=== PATIENT | male | born 1965 | race Caucasian/White ===

== ENCOUNTER 2019-10-03 13:53 | Observation (INO) | payer OTHER ==
[2019-10-03] MEDS ORDERED: HYDROmorphone 0.5 MG/0.5 ML SYRINGE IVP STA (14:22)
[2019-10-03] MEDS ORDERED: SODIUM CHLORIDE 0.9% 1,000 ML IV STA ×2 (14:22)
[2019-10-03] MEDS ORDERED: KETOROLAC 30 MG/ML 1 ML VIAL IVP STA (14:22)
[2019-10-03] MEDS ORDERED: ONDANSETRON 4 MG/2 ML VIAL IVP STA (14:22)
--- NOTE | 2019-10-03 14:37 | ED ---
Abdominal Pain HPI - General Chief Complaint: Abdominal Pain Stated Complaint: Gallbladder pain Time Seen by Provider: 10/03/19 14:10 Source: patient, RN notes reviewed, old records reviewed Mode of arrival: ambulatory Limitations: no limitations - History of Present Illness Initial Comments: This patient's a 34-year-old male. He presents today with complaint of right upper quadrant abdominal pain. Symptoms started after he ate [employer] earlier today. Patient reports that he has been having some diarrhea off and on for the past few days. Patient states that he has had a known history of galbladder problems but reports that Dr. Olivo did not want to remove his gallbladder at that time. Patient states that he's had no fever at this time, but did have a fever earlier this week. He states that he has had normal urination. - Related Data Home Medications Medication Instructions Recorded Confirmed Calcium Carbonate [Tums] 500 mg PO TID PRN 11/16/15 12/10/15 Gabapentin [Neurontin] 600 mg PO HS PRN 11/16/15 12/10/15 HYDROcodone/APAP 10-325MG [[place] 1 tab PO Q8H PRN 11/16/15 12/10/15 10-325] Hydrochlorothiazide [Hydrodiuril] 12.5 mg PO DAILY 11/16/15 12/10/15 Lisinopril [Zestril] 20 mg PO DAILY 11/16/15 12/10/15 Losartan [Cozaar] 50 mg PO DAILY 11/16/15 12/10/15 Mv-Min/Vit C/Glu/Delisa HCl/Hc124 1 tab PO BID 11/16/15 12/10/15 [Airborne Tablet Chewable] Omeprazole [PriLOSEC] 20 mg PO BID PRN 11/16/15 12/10/15 Previous Rx's Medication Instructions Recorded HYDROcodone/APAP 7.5-325MG [[place] 1 tab PO Q6HR PRN #28 tab 12/09/15 7.5-325] Allergies Allergy/AdvReac Type Severity Reaction Status Date / Time No Known Allergies Allergy Verified 10/03/19 14:05 Review of Systems ROS Statement: Those systems with pertinent positive or pertinent negative responses have been documented in the HPI. ROS Other: All systems not noted in ROS Statement are negative. Past Medical History Past Medical History: GERD/Reflux, Hyperlipidemia, Hypertension Additional Past Medical History / Comment(s): 12/09/15 Pt admitted to floor s/p lap viet fundoplasty. Other HX: OCC HYPOGLYCEMIC. Back pain. HX STOMACH ULCER YEARS AGO. History of Any Multi-Drug Resistant Organisms: None Reported Past Surgical History: Heart Catheterization, Orthopedic Surgery Additional Past Surgical History / Comment(s): 12/09/15 Laparoscopic Viet Fundoplasty. Other surgical hx: CERVICAL FUSION. EGD, LAST 11/17/15. C OLONOSCOPY. Past Anesthesia/Blood Transfusion Reactions: No Reported Reaction Past Psychological History: No Psychological Hx Reported Smoking Status: Never smoker Past Alcohol Use History: None Reported Past Drug Use History: None Reported - Past Family History Father Family Medical History: Vascular Disorder Additional Family Medical History / Comment(s): Father was a smoker. He had PVD. He at age 70 Mother Family Medical History: Coronary Artery Disease (CAD), Diabetes Mellitus Additional Family Medical History / Comment(s): Mother has an arrhythmia, obesity. General Exam - General Exam Comments Initial Comments: 54-year-old male. Alert and oriented. No significant distress. Limitations: no limitations General appearance: alert, in no apparent distress Head exam: Present: atraumatic, normocephalic, normal inspection Eye exam: Present: normal appearance, PERRL, EOMI. Absent: scleral icterus, conjunctival injection, periorbital swelling ENT exam: Present: normal exam, mucous membranes moist Neck exam: Present: normal inspection. Absent: tenderness, meningismus, lymphadenopathy Respiratory exam: Present: normal lung sounds bilaterally. Absent: respiratory distress, wheezes, rales, rhonchi, stridor Cardiovascular Exam: Present: regular rate GI/Abdominal exam: Present: soft, tenderness (right upper quadrant tenderness), normal bowel sounds. Absent: distended, guarding, rebound, rigid Extremities exam: Present: normal inspection, full ROM, normal capillary refill. Absent: tenderness, pedal edema, joint swelling, calf tenderness Back exam: Present: normal inspection Neurological exam: Present: alert, oriented X3, CN II-XII intact Psychiatric exam: Present: normal affect, normal mood Skin exam: Present: warm, dry, intact, normal color. Absent: rash Course Vital Signs 10/03/19 14:03 Temperature 98.0 F Pulse Rate 66 Respiratory 18 Rate Blood Pressure 125/83 O2 Sat by Pulse 97 Oximetry Medical Decision Making - Medical Decision Making Patient is a 54-year-old male presents today for complaint of severe doubling over right-sided abdominal pain shortly after eating a fast food sandwich today. He certainly has some abdominal pains earlier this week. He also states he's been having diarrhea and chills earlier this week. At this time Patient did have some significant right upper quadrant tenderness. Patient started on IV fluids labwork obtained. Patient's CBC was unremarkable. CMP shows some mild elevations of his liver enzymes. Ultrasound shows evidence of biliary sludge, and hydropic gallbladder. Recommended further evaluation with possible HIDA scan with CCK. - Lab Data Result diagrams: 10/03/19 13:30 10/03/19 13:30 Lab Results 10/03/19 10/03/19 10/03/19 Range/Units 13:30 13:30 13:30 WBC 6.4 (3.8-10.6) k/uL RBC 4.84 (4.30-5.90) m/uL Hgb 15.2 (13.0-17.5) gm/dL Hct 45.6 (39.0-53.0) % MCV 94.1 (80.0-100.0) fL MCH 31.4 (25.0-35.0) pg MCHC 33.3 (31.0-37.0) g/dL RDW 12.9 (11.5-15.5) % Plt Count 249 (150-450) k/uL Neutrophils % 64 % Lymphocytes % 23 % Monocytes % 7 % Eosinophils % 3 % Basophils % 1 % Neutrophils # 4.1 (1.3-7.7) k/uL Lymphocytes # 1.5 (1.0-4.8) k/uL Monocytes # 0.4 (0-1.0) k/uL Eosinophils # 0.2 (0-0.7) k/uL Basophils # 0.1 (0-0.2) k/uL PT (9.0-12.0) sec INR (<1.2) APTT (22.0-30.0) sec Sodium 141 (137-145) mmol/L Potassium 4.5 (3.5-5.1) mmol/L Chloride 108 H (98-107) mmol/L Carbon Dioxide 27 (22-30) mmol/L Anion Gap 6 mmol/L BUN 10 (9-20) mg/dL Creatinine 0.91 (0.66-1.25) mg/dL Est GFR (CKD-EPI)AfAm >90 (>60 ml/min/1.73 sqM) Est GFR (CKD-EPI)NonAf >90 (>60 ml/min/1.73 sqM) Glucose 106 H (74-99) mg/dL Plasma Lactic Acid Jim 1.2 (0.7-2.0) mmol/L Calcium 9.3 (8.4-10.2) mg/dL Total Bilirubin 0.3 (0.2-1.3) mg/dL AST 72 H (17-59) U/L ALT 54 H (4-49) U/L Alkaline Phosphatase 100 (38-126) U/L Total Protein 7.1 (6.3-8.2) g/dL Albumin 4.4 (3.5-5.0) g/dL Amylase 76 (30-110) U/L Lipase 169 (23-300) U/L Urine Color Urine Appearance (Clear) Urine pH (5.0-8.0) Ur Specific [place] (1.001-1.035) Urine Protein (Negative) Urine Glucose (UA) (Negative) Urine Ketones (Negative) Urine Blood (Negative) Urine Nitrite (Negative) Urine Bilirubin (Negative) Urine Urobilinogen (<2.0) mg/dL Ur Leukocyte Esterase (Negative) 10/03/19 10/03/19 Range/Units 13:30 15:00 WBC (3.8-10.6) k/uL RBC (4.30-5.90) m/uL Hgb (13.0-17.5) gm/dL Hct (39.0-53.0) % MCV (80.0-100.0) fL MCH (25.0-35.0) pg MCHC (31.0-37.0) g/dL RDW (11.5-15.5) % Plt Count (150-450) k/uL Neutrophils % % Lymphocytes % % Monocytes % % Eosinophils % % Basophils % % Neutrophils # (1.3-7.7) k/uL Lymphocytes # (1.0-4.8) k/uL Monocytes # (0-1.0) k/uL Eosinophils # (0-0.7) k/uL Basophils # (0-0.2) k/uL PT 10.7 (9.0-12.0) sec INR 1.0 (<1.2) APTT 25.5 (22.0-30.0) sec Sodium (137-145) mmol/L Potassium (3.5-5.1) mmol/L Chloride (98-107) mmol/L Carbon Dioxide (22-30) mmol/L Anion Gap mmol/L BUN (9-20) mg/dL Creatinine (0.66-1.25) mg/dL Est GFR (CKD-EPI)AfAm (>60 ml/min/1.73 sqM) Est GFR (CKD-EPI)NonAf (>60 ml/min/1.73 sqM) Glucose (74-99) mg/dL Plasma Lactic Acid Jim (0.7-2.0) mmol/L Calcium (8.4-10.2) mg/dL Total Bilirubin (0.2-1.3) mg/dL AST (17-59) U/L ALT (4-49) U/L Alkaline Phosphatase (38-126) U/L Total Protein (6.3-8.2) g/dL Albumin (3.5-5.0) g/dL Amylase (30-110) U/L Lipase (23-300) U/L Urine Color Light Yellow Urine Appearance Clear (Clear) Urine pH 7.5 (5.0-8.0) Ur Specific [place] 1.007 (1.001-1.035) Urine Protein Negative (Negative) Urine Glucose (UA) Negative (Negative) Urine Ketones Negative (Negative) Urine Blood Negative (Negative) Urine Nitrite Negative (Negative) Urine Bilirubin Negative (Negative) Urine Urobilinogen <2.0 (<2.0) mg/dL Ur Leukocyte Esterase Negative (Negative) - Radiology Data Radiology results: report reviewed Ultrasound shows hydropic size of the gallbladder and biliary sludge. HIDA scan with CCK could evaluate for biliary dyskinesia is borderline by his report she is on prior 2016. No sonographic evidence of acute cholecystitis although common bile duct is obscured by bowel gas. Sonographic findings most commonly related hepatic C ptosis. Correlate with liver function tests recommend. Disposition Clinical Impression: RUQ pain, Biliary sludge Disposition: ADMITTED IP TO THIS HOSP Condition: Good Is patient prescribed a controlled substance at d/c from ED?: No Referrals: Imani Wan DO [Primary Care Provider] - 1-2 days Time of Disposition: 16:27
[2019-10-03 14:52] LABS: Basophils # (A) 0.1 k/uL (0-0.2); Basophils % (A) 1 %; Eosinophils # (A) 0.2 k/uL (0-0.7); Eosinophils % (A) 3 %; HCT 45.6 % (39.0-53.0); HGB 15.2 gm/dL (13.0-17.5); Lymphocytes # (A) 1.5 k/uL (1.0-4.8); Lymphocytes % (A) 23 %; MCH 31.4 pg (25.0-35.0); MCHC 33.3 g/dL (31.0-37.0); MCV 94.1 fL (80.0-100.0); Mean Platelet Volume 6.6; Monocytes # (A) 0.4 k/uL (0-1.0); Monocytes % (A) 7 %; Neutrophils # (A) 4.1 k/uL (1.3-7.7); Neutrophils % (A) 64 %; Platelet Count 249 k/uL (150-450); RBC 4.84 m/uL (4.30-5.90); RDW 12.9 % (11.5-15.5); WBC 6.4 k/uL (3.8-10.6)
[2019-10-03 14:53] LABS: ALT 54 U/L (4-49); AST 72 U/L (17-59); African American GFR (CKD) >90 (>60 ml/min/1.73 sqM); Albumin 4.4 g/dL (3.5-5.0); Alkaline Phosphatase 100 U/L (38-126); Amylase 76 U/L (30-110); Anion Gap 6 mmol/L; Blood Urea Nitrogen 10 mg/dL (9-20); Calcium 9.3 mg/dL (8.4-10.2); Carbon Dioxide 27 mmol/L (22-30); Chloride 108 mmol/L (98-107); Glucose 106 mg/dL (74-99); Non-African American GFR(CKD) >90 (>60 ml/min/1.73 sqM); Potassium 4.5 mmol/L (3.5-5.1); Sodium 141 mmol/L (137-145); Total Bilirubin 0.3 mg/dL (0.2-1.3); Total Protein 7.1 g/dL (6.3-8.2)
[2019-10-03 15:11] LABS: Appearance,Urine Clear (Clear); Bilirubin,Urine Negative (Negative); Blood,Urine Negative (Negative); Color,Urine Light Yellow; Glucose,Urine (UA) Negative (Negative); Ketones,Urine Negative (Negative); Leukocyte Esterase,Urine Negative (Negative); Nitrite,Urine Negative (Negative); PH, Urine 7.5 (5.0-8.0); Protein,Urine Negative (Negative); Specific Gravity,Urine 1.007 (1.001-1.035); Urobilinogen,Urine <2.0 mg/dL (<2.0)
[2019-10-03 15:26] LABS: Partial Thromboplastin Time 25.5 sec (22.0-30.0); Prothrombin Time 10.7 sec (9.0-12.0)
--- NOTE | 2019-10-03 15:30 | US ---
EXAMINATION TYPE: US gallbladder DATE OF EXAM: 10/03/2019 COMPARISON: 11/18/2015 CLINICAL HISTORY: RUQ pain, hx gallbladder problems. EXAM MEASUREMENTS: Liver Length: 12.9 cm Gallbladder Wall: 0.2 cm CBD: Obscured by overlying bowel gas Right Kidney: 9.7 x 6.2 x 5.3 cm Severe overlying bowel gas. Patient post prandial. Technically difficult and limited Pancreas: Obscured by bowel gas Liver: There is increased echogenicity of the hepatic parenchyma with diminished visualization of th e portal triads most commonly relating to hepatic steatosis and limiting evaluation for underlying he patic masses. Probable focal fatty sparing around the gallbladder fossa. Gallbladder: sludge without wall thickening. Enlarged and hydropic measuring 11.3 cm. Evidence for sonographic Roche's sign: no CBD: Obscured by overlying bowel gas Right Kidney: Inferior pole obscured by overlying bowel gas IMPRESSION: 1. Hydropic size of the gallbladder and biliary sludge. HIDA scan with CCK could evaluate for biliary dyskinesia as borderline values were appreciated on the prior of 2015. No sonographic evidence of ac aranza cholecystitis although the common bile duct is obscured by bowel gas. 2. Sonographic findings most commonly related to hepatic steatosis. Correlate with liver function ruth ann ts is recommended. 3. Obscuration of the pancreas and inferior pole the right kidney by overlying bowel gas.
[2019-10-03] MEDS ORDERED: NALOXONE 0.4 MG/ML 1 ML VIAL IV PRN (16:35)
[2019-10-03] MEDS ORDERED: ACETAMINOPHEN TAB 325 MG TAB PO PRN (16:35)
[2019-10-03] MEDS ORDERED: IBUPROFEN 400 MG TAB PO PRN (16:35)
[2019-10-03] MEDS ORDERED: KETOROLAC 30 MG/ML 1 ML VIAL IVP PRN (16:35)
[2019-10-03] MEDS ORDERED: ONDANSETRON 4 MG/2 ML VIAL IVP PRN (16:35)
[2019-10-03] MEDS ORDERED: GABAPENTIN 300 MG CAP PO PRN ×2 (16:39→20:01)
--- NOTE | 2019-10-03 17:25 | P.HPIM ---
History of Present Illness H&P Date: 10/03/19 Chief Complaint: abdominal pain the patient is a obese 54-year-old male with a past medical history of essential hypertension, GERD s/p Johanny fundoplication, chronic pain secondary to cervical and lumbar degenerative disc disease with a history of cervical fusion currently on opiates presents to the ER via private vehicle with chief complaint of abdominal pain. Apparently the patient reports 8/10 mid epigastric to right upper quadrant ull achy abdominal pain with radiation into his right shoulder, with associated episodes of nausea denies any bloody or bilious emesis, he reports associated diarrhea described as watery and loose over the last 2 weeks. He denies any recent exposure to antibiotics. Denies any specific exacerbating or relieving factors. The patient reports decreased appetite over the last 2 days. He also reported subjective fevers and chills earlier this week. He denies any chest pain or shortness of breath. in the ER had a comprehensive workupright upper quadrant ultrasound hydropic size of the gallbladder and biliary sludge, without any sonographic evidence of acute cholecystitis. his CBC was unremarkable, he was noted to have a mild transaminitis of 72/54 of AST ALTs respectively and his urinalysis was negative. he was given IV fluids, Zofran and Dilaudid and recommended for admission. Review of Systems pertinent positive for HPI all other review of system otherwise negative Past Medical History Past Medical History: GERD/Reflux, Hyperlipidemia, Hypertension Additional Past Medical History / Comment(s): 12/09/15 Pt admitted to floor s/p lap johanny fundoplasty. Other HX: OCC HYPOGLYCEMIC. Back pain. HX STOMACH ULCER YEARS AGO. History of Any Multi-Drug Resistant Organisms: None Reported Past Surgical History: Heart Catheterization, Orthopedic Surgery Additional Past Surgical History / Comment(s): 12/09/15 Laparoscopic Johanny Fundoplasty. Other surgical hx: CERVICAL FUSION. EGD, LAST 11/17/15. COLONOSCOPY. Past Anesthesia/Blood Transfusion Reactions: No Reported Reaction Past Psychological History: No Psychological Hx Reported Smoking Status: Never smoker Past Alcohol Use History: None Reported Past Drug Use History: None Reported - Past Family History Father Family Medical History: Vascular Disorder Additional Family Medical History / Comment(s): Father was a smoker. He had PVD. He at age 70 Mother Family Medical History: Coronary Artery Disease (CAD), Diabetes Mellitus Additional Family Medical History / Comment(s): Mother has an arrhythmia, obesity. Medications and Allergies Home Medications Medication Instructions Recorded Confirmed Type Calcium Carbonate [Tums] 500 mg PO TID PRN 11/16/15 12/10/15 History Gabapentin [Neurontin] 600 mg PO HS PRN 11/16/15 12/10/15 History HYDROcodone/APAP 10-325MG [[place] 1 tab PO Q8H PRN 11/16/15 12/10/15 History 10-325] Hydrochlorothiazide [Hydrodiuril] 12.5 mg PO DAILY 11/16/15 12/10/15 History Lisinopril [Zestril] 20 mg PO DAILY 11/16/15 12/10/15 History Losartan [Cozaar] 50 mg PO DAILY 11/16/15 12/10/15 History Mv-Min/Vit C/Glu/Delisa HCl/Hc124 1 tab PO BID 11/16/15 12/10/15 History [Airborne Tablet Chewable] Omeprazole [PriLOSEC] 20 mg PO BID PRN 11/16/15 12/10/15 History HYDROcodone/APAP 7.5-325MG [[place] 1 tab PO Q6HR PRN #28 tab 12/09/15 Rx 7.5-325] Allergies Allergy/AdvReac Type Severity Reaction Status Date / Time No Known Allergies Allergy Verified 10/03/19 14:05 Physical Exam Vitals: Vital Signs Temp Pulse Resp BP Pulse Ox 10/03/19 16:50 70 18 127/81 99 10/03/19 14:03 98.0 F 66 18 125/83 97 Intake and Output 10/03/19 10/03/19 10/03/19 06:59 14:59 22:59 Other: Weight 107.501 kg Constitutional: No acute distress, conversant, pleasant Eyes: Anicteric sclerae, moist conjunctiva, no lid-lag, PERRLA ENMT: NC/AT,Oropharynx clear, no erythema, dry mucous membranes Neck:Supple, FROM, no masses, or JVD, No carotid bruits; No thyromegaly Lungs: Clear to auscultation, Clear to percussion, Normal respiratory effort, no accessory muscle use Cardiovascular: Heart regular in rate and rhythm, No murmurs, gallops, or rubs no peripheral edema Abdominal: tender to palpation in the epigastrium positive Roche sign, , Normoactive bowel sounds No hepatomegaly, No splenomegaly Skin: Normal temperature, tone, texture, turgor, No induration No subcutaneous nodules, No rash, lesions, No ulcers Extremities:No digital cyanosis No clubbing, Pedal pulses intact and symmetrical Radial pulses intact, , No calf tenderness Psychiatric: Alert and oriented to person, place and time, Appropriate affect Intact judgement Neuro: Muscles Strength 5/5 in all 4 extremities, Sensation to light touch grossly present throughout, Cranial nerves II-XII grossly intact. No focal sensory deficits Results CBC & Chem 7: 10/03/19 13:30 10/03/19 13:30 Labs: Abnormal Lab Results - Last 24 Hours (Table) 10/03/19 Range/Units 13:30 Chloride 108 H (98-107) mmol/L Glucose 106 H (74-99) mg/dL AST 72 H (17-59) U/L ALT 54 H (4-49) U/L Assessment and Plan Assessment: right upper quadrant abdominal pain Biliary sludge Transaminitis Essential hypertension History of GERD status post Johanny History of JOSEPH Plan: the patientin observation anticipate a less than 2 midnight stay after presenting with right upper quadrant and epigastric abdominal pain with concern forhepatobiliary disease with right upper quadrant ultrasound suggesting biliary sludge without any acute cholecystitis, we'll plan to obtain a HIDA scan with general surgery consultation to evaluate for laparoscopic cholecystectomy. Continue supportive management with antiemetics, analgesics therapy, and IV fluids, continue clear liquid diet and will make patient nothing by mouth at midnight with plans for possible surgery in the morning. The patient is hemodynamically stable is continued on home medications. CODE STATUS: Full code Discussed plan of care with: Patient and his Anticipated discharge:1-[address]: Home
[2019-10-03] MEDS: HYDROmorphone 1 MG/ML 1 ML SYRINGE IVP PRN ×2 (17:50→23:00)
--- NOTE | 2019-10-03 18:10 | XR ---
EXAMINATION TYPE: XR KUB DATE OF EXAM: 10/03/2019 COMPARISON: NONE HISTORY: Pain and vomiting TECHNIQUE: 2 views upright FINDINGS: Bowel gas pattern is normal. There is no sign of intestinal obstruction or pneumoperitoneum . Fecal pattern is normal. Lung bases are clear. There are no pathologic calcifications over the kidn eys. IMPRESSION: Nonacute abdomen.
[2019-10-03] MEDS: SODIUM CHLORIDE 0.9% 1,000 ML IV SCH (18:20)
[2019-10-03 22:53] LABS: Glucose,Whole Blood 101 mg/dL (75-99)
[2019-10-04] MEDS: SODIUM CHLORIDE 0.9% 1,000 ML IV SCH ×3 (02:01→20:05)
[2019-10-04] MEDS: HYDROmorphone 1 MG/ML 1 ML SYRINGE IVP PRN (02:42)
[2019-10-04 06:37] LABS: Glucose,Whole Blood 94 mg/dL (75-99)
--- NOTE | 2019-10-04 08:56 | P.PN ---
Subjective Progress Note Date: 10/04/19 ,patient seen and examined at bedside, reports his pain is under better control hasn't had pain medication since approximately 2:30 AM. Reporting some nausea today. Patient scheduled to have laparoscopic cholecystectomy today per general surgery Objective - Vital Signs Vital signs: Vital Signs Temp 97.7 F 10/04/19 07:05 Pulse 55 L 10/04/19 07:05 Resp 18 10/04/19 07:05 BP 112/69 10/04/19 07:05 Pulse Ox 97 10/04/19 07:05 Intake & Output 10/03/19 10/04/19 10/04/19 18:59 06:59 18:59 Weight 107.501 kg Other: Voiding Method Toilet Toilet # Voids 1 1 - Exam Constitutional: No acute distress, conversant, pleasant Eyes: Anicteric sclerae, moist conjunctiva, no lid-lag, PERRLA ENMT: NC/AT,Oropharynx clear, no erythema, exudates Neck:Supple, FROM, no masses, or JVD, No carotid bruits; No thyromegaly Lungs: Clear to auscultation, Clear to percussion, Normal respiratory effort, no accessory muscle use Cardiovascular: Heart regular in rate and rhythm, No murmurs, gallops, or rubs no peripheral edema Abdominal:positive Roche sign, involuntary guarding, no rebound tenderness Normoactive bowel sounds No hepatomegaly, No splenomegaly, No palpable mass No abdominal wall hernia noted Skin: Normal temperature, tone, texture, turgor, No induration No subcutaneous nodules, No rash, lesions, No ulcers Extremities:No digital cyanosis No clubbing, Pedal pulses intact and symmetrical Radial pulses intact and symmetrical Normal gait and station, No calf tenderness Psychiatric: Alert and oriented to person, place and time, Appropriate affect Intact judgement Neuro: Muscles Strength 5/5 in all 4 extremities, Sensation to light touch gr ossly present throughout, Cranial nerves II-XII grossly intact. No focal sensory deficits - Labs CBC & Chem 7: 10/03/19 13:30 10/03/19 13:30 Labs: Abnormal Lab Results - Last 24 Hours (Table) 10/03/19 10/03/19 Range/Units 13:30 22:52 Chloride 108 H (98-107) mmol/L Glucose 106 H (74-99) mg/dL POC Glucose (mg/dL) 101 H (75-99) mg/dL AST 72 H (17-59) U/L ALT 54 H (4-49) U/L Assessment and Plan Assessment: right upper quadrant abdominal pain * Likely secondary to hepatobiliary disease as suggested by biliary sludge seen on right upper quadrant ultrasound * Gen. surgery consulted we'll likely have laparoscopic cholecystectomy today * Continue pain management, IV fluids hydration and antiemetics Biliary sludge * HIDA scans canceled by general surgery will proceed directly to the laparoscopic cholecystectomy Transaminitis * secondary to above Essential hypertension * blood pressure stable and controlled History of GERD status post Viet * currently asymptomatic History of JOSEPH disposition * will likely discharge the patient tomorrow if he is doing well post cholecystectomy
[2019-10-04] MEDS ORDERED: LOSARTAN 50 MG TAB PO SCH (09:00)
[2019-10-04] MEDS ORDERED: LISINOPRIL 20 MG TAB PO SCH (09:00)
[2019-10-04] MEDS ORDERED: HYDROCHLOROTHIAZIDE 12.5 MG CAP PO SCH (09:00)
--- NOTE | 2019-10-04 09:07 | P.GSCN ---
History of Present Illness Consult date: 10/04/19 Reason for Consult: right upper quadrant pain History of present illness: this a 54-year-old male who's had chronic placement quadrant pain. Patient developed pain after eating breaking yesterday. He is known to have biliary sludge. I've asked to see him in the past for right upper quadrant pain. He was recommended to have cholestatic performed 4 years ago. Past Medical History Past Medical History: GERD/Reflux, Hyperlipidemia, Hypertension Additional Past Medical History / Comment(s): 12/09/15 Pt admitted to floor s/p lap johanny fundoplasty. Other HX: OCC HYPOGLYCEMIC. Back pain. HX STOMACH ULCER YEARS AGO. History of Any Multi-Drug Resistant Organisms: None Reported Past Surgical History: Heart Catheterization, Orthopedic Surgery Additional Past Surgical History / Comment(s): 12/09/15 Laparoscopic Johanny Fundoplasty. Other surgical hx: CERVICAL FUSION. EGD, LAST 11/17/15. COLON OSCOPY. Past Anesthesia/Blood Transfusion Reactions: No Reported Reaction Past Psychological History: No Psychological Hx Reported Additional Psychological History / Comment(s): Pt resides with his spouse and 17 yr old nigel. He is independent. He drives. Smoking Status: Never smoker Past Alcohol Use History: None Reported Past Drug Use History: None Reported - Past Family History Father Family Medical History: Vascular Disorder Additional Family Medical History / Comment(s): Father was a smoker. He had PVD. He at age 70 Mother Family Medical History: Coronary Artery Disease (CAD), Diabetes Mellitus Additional Family Medical History / Comment(s): Mother has an arrhythmia, obesity. Medications and Allergies Home Medications Medication Instructions Recorded Confirmed Type Gabapentin [Neurontin] 600 mg PO BID PRN 11/16/15 10/03/19 History HYDROcodone/APAP 10-325MG [[place] 1 tab PO Q8H PRN 11/16/15 10/03/19 History 10-325] Mv-Min/Vit C/Glu/Delisa HCl/Hc124 1 tab PO BID 11/16/15 10/03/19 History [Airborne Tablet Chewable] Folic Acid 1 mg PO DAILY 10/03/19 10/03/19 History Losartan Potassium [Cozaar] 25 mg PO DAILY 10/03/19 10/03/19 History Magnesium Oxide [Mag-Ox] 400 mg PO DAILY 10/03/19 10/03/19 History Allergies Allergy/AdvReac Type Severity Reaction Status Date / Time No Known Allergies Allergy Verified 10/03/19 17:16 Surgical - Exam Vital Signs Temp Pulse Resp BP Pulse Ox 98.0 F 66 18 125/83 97 10/03/19 14:03 10/03/19 14:03 10/03/19 14:03 10/03/19 14:03 10/03/19 14:03 - General well developed, well nourished, no distress - Eyes PERRL - ENT normal pinna - Neck no masses - Respiratory normal expansion - Cardiovascular Rhythm: regular - Abdomen mild lower quadrant pain Abdomen: soft Results - Labs 10/03/19 13:30 10/03/19 13:30 Abnormal Lab Results - Last 24 Hours (Table) 10/03/19 10/03/19 Range/Units 13:30 22:52 Chloride 108 H (98-107) mmol/L Glucose 106 H (74-99) mg/dL POC Glucose (mg/dL) 101 H (75-99) mg/dL AST 72 H (17-59) U/L ALT 54 H (4-49) U/L Diabetes panel 10/03/19 Range/Units 13:30 Sodium 141 (137-145) mmol/L Potassium 4.5 (3.5-5.1) mmol/L Chloride 108 H (98-107) mmol/L Carbon Dioxide 27 (22-30) mmol/L BUN 10 (9-20) mg/dL Creatinine 0.91 (0.66-1.25) mg/dL Glucose 106 H (74-99) mg/dL Calcium 9.3 (8.4-10.2) mg/dL AST 72 H (17-59) U/L ALT 54 H (4-49) U/L Alkaline Phosphatase 100 (38-126) U/L Total Protein 7.1 (6.3-8.2) g/dL Albumin 4.4 (3.5-5.0) g/dL Calcium panel 10/03/19 Range/Units 13:30 Calcium 9.3 (8.4-10.2) mg/dL Albumin 4.4 (3.5-5.0) g/dL Pituitary panel 10/03/19 Range/Units 13:30 Sodium 141 (137-145) mmol/L Potassium 4.5 (3.5-5.1) mmol/L Chloride 108 H (98-107) mmol/L Carbon Dioxide 27 (22-30) mmol/L BUN 10 (9-20) mg/dL Creatinine 0.91 (0.66-1.25) mg/dL Glucose 106 H (74-99) mg/dL Calcium 9.3 (8.4-10.2) mg/dL Adrenal panel 10/03/19 Range/Units 13:30 Sodium 141 (137-145) mmol/L Potassium 4.5 (3.5-5.1) mmol/L Chloride 108 H (98-107) mmol/L Carbon Dioxide 27 (22-30) mmol/L BUN 10 (9-20) mg/dL Creatinine 0.91 (0.66-1.25) mg/dL Glucose 106 H (74-99) mg/dL Calcium 9.3 (8.4-10.2) mg/dL Total Bilirubin 0.3 (0.2-1.3) mg/dL AST 72 H (17-59) U/L ALT 54 H (4-49) U/L Alkaline Phosphatase 100 (38-126) U/L Total Protein 7.1 (6.3-8.2) g/dL Albumin 4.4 (3.5-5.0) g/dL - Imaging US - abdomen: report reviewed (sludge and gallbladder, hydropic 11 cm gallbladder) Assessment and Plan Assessment: cholelithiasis Chronic cholecystitis We'll perform laparoscopic cholecystectomy
[2019-10-04] MEDS: HYDROmorphone 0.5 MG/0.5 ML SYRINGE IVP PRN ×3 (10:01→17:52)
[2019-10-04] MEDS ORDERED: LACTATED RINGERS 1,000 ML IV ONE ×2 (10:16→11:58)
[2019-10-04] MEDS ORDERED: DEXAMETHASONE SOD PHOSPHATE 10 MG/ML 1 ML VIAL IV ONE (10:26)
[2019-10-04] MEDS ORDERED: ONDANSETRON 4 MG/2 ML VIAL IVP ONE (10:26)
[2019-10-04] MEDS ORDERED: HEPARIN SODIUM,PORCINE 5,000 UNIT/ML 1 ML VIAL SQ ONE (10:42)
[2019-10-04] MEDS ORDERED: ceFAZolin 1,000 MG VIAL ONE (11:08)
[2019-10-04] MEDS ORDERED: GLYCOPYRROLATE 0.2 MG/ML 2 ML VIAL ONE (11:08)
[2019-10-04] MEDS ORDERED: LIDOCAINE 1% INJ 10MG/ML (20 ML MDV) ONE (11:08)
[2019-10-04] MEDS ORDERED: SUCCINYLCHOLINE CHLORIDE 100 MG/5 ML SYR IV ONE (11:08)
[2019-10-04] MEDS ORDERED: PROPOFOL 10 MG/ML 20 ML VIAL IV ONE (11:08)
[2019-10-04] MEDS ORDERED: SODIUM CHLORIDE 0.9% 100 ML BAG ONE (11:08)
[2019-10-04] MEDS ORDERED: MIDAZOLAM 2 MG/2 ML VIAL ONE (11:08)
[2019-10-04] MEDS ORDERED: HYDROmorphone (PF) 1 MG/ML ONE (11:08)
[2019-10-04] MEDS ORDERED: LABETALOL 5 MG/ML VIAL MDV ONE (11:08)
[2019-10-04] MEDS ORDERED: NEOSTIGMINE 1 MG/ML 10 ML VIAL ONE (11:08)
[2019-10-04] MEDS ORDERED: ROCURONIUM BROMIDE 10 MG/ML 10 ML VIAL IV ONE (11:08)
[2019-10-04] MEDS ORDERED: fentaNYL (PF) 50 MCG/ML 2 ML AMP ONE (11:08)
[2019-10-04] MEDS ORDERED: BUPIVACAIN-EPI 0.25%-1:200,000 30 ML VIAL SQ ONE (11:37)
[2019-10-04] MEDS ORDERED: HYDROmorphone 1 MG/ML 1 ML SYRINGE IVP PRN (12:05)
--- NOTE | 2019-10-04 12:05 | P.OP ---
Date of Procedure: 10/04/19 Preoperative Diagnosis: cholecystitis Postoperative Diagnosis: cholecystitis Procedure(s) Performed: laparoscopic cholecystectomy Anesthesia: JAMARI Surgeon: Corky Olivo Estimated Blood Loss (ml): 10 Pathology: other Condition: stable Disposition: PACU Description of Procedure: The patient was placed on the operating table. The patient received a general endotracheal tube anesthesia. The patients abdomen was prepped and draped in the usual sterile fashion. Through an infraumbilical stab incision, the fascia of the anterior abdominal wall was grasped with a pair of Kochers and then the Veress needle was placed in the peritoneal cavity. Position of the Veress needle was confirmed with positive drop test. The abdomen was then insufflated. After adequate insufflation, the 10 mm trocar was placed in the peritoneal cavity. Following this the laparoscope was placed in the peritoneal cavity. The patient was placed in the head-up, right side up position and then a 5 mm trocar was placed in the right lateral and right subcostal position under direct visualization. A 8 mm trocar was placed in the epigastric position. The gallbladder was grasped in the fundus and infundibulum. the gallbladder appeared to be inflamed and was hydropicTraction on the gallbladder was placed in the lateral and the cephalad positions. The triangle of Calot was visualized.. The cystic duct was bluntly dissected until the union of the cystic duct and common bile duct was seen. A critical view of safety was achieved. The cystic duct was then divided and sealed with the Harmonic scissors. A PDS Endoloop was then placed throughout the cystic duct stump. The cystic artery divided and sealed with the Harmonic scissors. The gallbladder was then removed from the liver bed using Harmonic scissors. The gallbladder was then extracted through the epigastric port site. Operative field was checked for any bleeding spots and Harmonic scissors was used to coagulate the liver bed. The abdomen was irrigated. The trocars were removed. The skin was closed using interrupted 3-0 Vicryl suture. Dermabond dressing were applied. The patient tolerated the procedure well.
[2019-10-04 12:28] VITALS: RESP 18
[2019-10-04 13:41] LABS: Glucose,Whole Blood 115 mg/dL (75-99)
[2019-10-04] MEDS: LOSARTAN 25 MG TAB PO SCH (14:11)
[2019-10-04] MEDS: PANTOPRAZOLE 40 MG/10 ML VIAL IV SCH (14:12)
[2019-10-04 16:23] LABS: Glucose,Whole Blood 117 mg/dL (75-99)
[2019-10-04 20:39] LABS: Glucose,Whole Blood 111 mg/dL (75-99)
[2019-10-05] MEDS: SODIUM CHLORIDE 0.9% 1,000 ML IV SCH (05:18)
[2019-10-05 07:09] LABS: Glucose,Whole Blood 97 mg/dL (75-99)
[2019-10-05] MEDS: PANTOPRAZOLE 40 MG/10 ML VIAL IV SCH (08:01)
[2019-10-05] MEDS: LOSARTAN 25 MG TAB PO SCH (08:01)
[2019-10-05 08:04] VITALS: BP 120/73; PULSE 59; TEMP 97.9
--- NOTE | 2019-10-05 11:19 | P.DS ---
Providers Date of admission: 10/03/19 16:19 Expected date of discharge: 10/05/19 Attending physician: Ann-Marie Valdez DO Consults: 10/03/19 16:35 Consult Physician Stat Consulting Provider: Corky Olivo Consult Reason/Comments: RUQ pain, Biliary sludge Do you want consulting provider notified?: Yes Primary care physician: [facility] Course: Patient is a 54-year-old male with PMH of hypertension, GERD, chronic pain secondary to cervical and lumbar degenerative disc disease presents the ED for right upper quadrant abdominal pain. Right upper quadrant ultrasound showed hydropic size of gallbladder and biliary sludge without any sonographic evidence of acute cholecystitis. Patient was noted to have a mild transaminitis of AST 72 ALT 54. He was given supportive treatment with IV fluids, Zofran and Dilaudid and general surgery was consulted. General surgery recommended cholecystectomy. Patient underwent cholecystectomy on 10/04/2018. Patient was seen and examined. No acute events overnight. Patient reports resolution of his right upper quadrant abdominal pain. Complains of some vague pain at the site of incision. No nausea or vomiting. No fever or chills. Urinating freely. Passing gas. General: [non toxic], [no distress], [appears at stated age] Derm: [warm], [dry] Head: [atraumatic], [normocephalic], [symmetric] Eyes: [EOMI], [no lid lag], [anicteric sclera] Mouth: [no lip lesion], [mucus membranes moist] Cardiovascular: [S1S2 reg], [no murmur], [positive DP pulse bilateral], Lungs: [CTA bilateral], [no rhonchi, no rales] , [no accessory muscle use] Abdominal: [soft], [ nontender to palpation], [no guarding], [no appreciable organomegaly], [laparoscopic scars no erythema or discharge] Ext: [no gross muscle atrophy], [no edema], [no contractures] Neuro: [no focal neuro deficits] Psych: [Alert], [oriented], [appropriate affect] Right upper quadrant abdominal pain with biliary sludge status post cholecystectomy POD 1 Transaminitis Hypertension GERD status post Viet fundoplication Chronic cervical and lumbar pain Obesity with BMI 33.1 Patient is POD 1 laparoscopic cholecystectomy. Pain is well-controlled with oral medication. He is passing gas and urinating freely. Plans to DC home today with close follow-up with general surgery and PCP. Repeat CMP in 3 days to check for resolution of transaminitis. Has pain contract with pain specialist. His blood pressure is currently well under control with losartan. He will need a structured weight loss program for obesity. Patient verbalized understanding of the plan. Pertinent Studies: Gallbladder ultrasound, KUB Procedures: Laparoscopic cholecystectomy Patient Condition at Discharge: Good Plan - Discharge Summary Discharge Rx Participant: No New Discharge Prescriptions: New Docusate [Colace] 100 mg PO BID #20 capsule HYDROcodone/APAP 5-325MG [[place] 5-325] 1 tab PO Q6HR PRN #10 tab PRN Reason: Pain Continue Gabapentin [Neurontin] 600 mg PO BID PRN PRN Reason: Pain HYDROcodone/APAP 10-325MG [[place] 10-325] 1 tab PO Q8H PRN PRN Reason: Pain Mv-Min/Vit C/Glu/Delisa HCl/Hc124 [Airborne Tablet Chewable] 1 tab PO BID Magnesium Oxide [Mag-Ox] 400 mg PO DAILY Folic Acid 1 mg PO DAILY Losartan Potassium [Cozaar] 25 mg PO DAILY Discharge Medication List Gabapentin [Neurontin] 600 mg PO BID PRN 11/16/15 [History] HYDROcodone/APAP 10-325MG [[place] 10-325] 1 tab PO Q8H PRN 11/16/15 [History] Mv-Min/Vit C/Glu/Deilsa HCl/Hc124 [Airborne Tablet Chewable] 1 tab PO BID 11/16/15 [History] Folic Acid 1 mg PO DAILY 10/03/19 [History] Losartan Potassium [Cozaar] 25 mg PO DAILY 10/03/19 [History] Magnesium Oxide [Mag-Ox] 400 mg PO DAILY 10/03/19 [History] Docusate [Colace] 100 mg PO BID #20 capsule 10/05/19 [Rx] HYDROcodone/APAP 5-325MG [[place] 5-325] 1 tab PO Q6HR PRN #10 tab 10/05/19 [Rx] Follow up Appointment(s)/Referral(s): Imani Wan DO [Primary Care Provider] - 1-2 days Corky Olivo MD [STAFF PHYSICIAN] - 1 Week Ambulatory/Diagnostic Orders: Comprehensive Metabolic Panel [LAB.AMB] Time Frame: 3 Days, Location: None Selected Patient Instructions/Handouts: *Surgery [facility] - Laparoscopic Cholecystectomy Discharge Instructions Discharge Disposition: HOME SELF-CARE
== END 2019-10-05 11:00 | disposition home or self-care (01) ==
LOC: EC 13:53 → 1SOBS 16:19
PROVIDERS: ADMIT Internal Medicine; ATTEND Internal Medicine
DX: K81.1 Chronic cholecystitis (principal); K75.81 Nonalcoholic steatohepatitis (NASH); I10 Essential (primary) hypertension; K21.9 Gastro-esophageal reflux disease without esophagitis; M50.30 Other cervical disc degeneration, unspecified cervical region; M51.36 Other intervertebral disc degeneration, lumbar region; E78.5 Hyperlipidemia, unspecified; E66.9 Obesity, unspecified; Z68.33 Body mass index [BMI] 33.0-33.9, adult; Z79.899 Other long term (current) drug therapy; Z79.891 Long term (current) use of opiate analgesic; Z98.890 Other specified postprocedural states; Z87.11 Personal history of peptic ulcer disease; Z98.1 Arthrodesis status; Z82.49 Family history of ischemic heart disease and other diseases of the circulatory system; Z81.2 Family history of tobacco abuse and dependence; Z83.3 Family history of diabetes mellitus; Z83.49 Family history of other endocrine, nutritional and metabolic diseases
CPT/HCPCS: 96376 ×2; 96361; 96374; 96375; 99285; 36415; 88304; 80053; 82150; 83605; 83690; 85025; 85610; 85730; 81003; 74018; 76705; 47562; G0378 ×3; J2250; J1644; J1100; J2710; J2405 ×2; J0690; J2001; J3010; J1885 ×2; J1170 ×4; J0330; J2704; C9113 ×2

== ENCOUNTER 2024-05-17 17:31 | Emergency (ER) | payer MEDICARE, OTHER ==
[2024-05-17 17:43] VITALS: TEMP 98.9
--- NOTE | 2024-05-17 17:47 | ED ---
Weakness HPI - General Source: patient, RN notes reviewed Mode of arrival: ambulatory Limitations: no limitations - History of Present Illness MD Complaint: generalized weakness <Twila Kamara - Last Filed: 05/17/24 17:46> <Hillary Shane - Last Filed: 06/10/24 17:53> - General Chief complaint: Recheck/Abnormal Lab/Rx Stated complaint: Bodyaches Time Seen by Provider: 05/17/24 17:46 - History of Present Illness Initial comments: Quick Note: This is a 59-year-old male who presents to the emergency department for generalized weakness. States that over the last couple of days he has been very weak and refusing to eat or drink anything. Patient reports a headache as well. (Twila Kamara) 59-year-old male with chief complaint of URI-like symptoms. Symptoms have been ongoing for the last 2 days. They include congestion and cough. He also admits to generalized weakness. He has had a decreased appetite for the past few days. Admits to diarrhea, no nausea or vomiting. No chest pain or difficulty breathing. Admits to headache. (Hillary Shane) - Related Data Home Medications Medication Instructions Recorded Confirmed Gabapentin [Neurontin] 600 mg PO BID PRN 11/16/15 10/03/19 HYDROcodone/APAP 10-325MG [[place] 1 tab PO Q8H PRN 11/16/15 10/03/19 10-325] Mv-Min/Vit C/Glu/Delisa HCl/Hc124 1 tab PO BID 11/16/15 10/03/19 [Airborne Tablet Chewable] Folic Acid 1 mg PO DAILY 10/03/19 10/03/19 Losartan Potassium [Cozaar] 25 mg PO DAILY 10/03/19 10/03/19 Magnesium Oxide [Mag-Ox] 400 mg PO DAILY 10/03/19 10/03/19 Previous Rx's Medication Instructions Recorded Docusate [Colace] 100 mg PO BID #20 capsule 10/05/19 HYDROcodone/APAP 5-325MG [[place] 1 tab PO Q6HR PRN #10 tab 10/05/19 5-325] Nirmatrelvir/Ritonavir [Paxlovid 1 each PO BID 5 Days #30 each 05/17/24 300-100 mg Dose Pack] Allergies Allergy/AdvReac Type Severity Reaction Status Date / Time No Known Allergies Allergy Verified 05/17/24 17:43 Review of Systems ROS Other: All systems not noted in ROS Statement are negative. <Twila Kamara - Last Filed: 05/17/24 17:46> ROS Other: All systems not noted in ROS Statement are negative. <Hillary Shane - Last Filed: 06/10/24 17:53> ROS Statement: Those systems with pertinent positive or pertinent negative responses have been documented in the HPI. Past Medical History Past Medical History: GERD/Reflux, Hyperlipidemia, Hypertension Additional Past Medical History / Comment(s): 12/09/15 Pt admitted to floor s/p lap viet fundoplasty. Other HX: OCC HYPOGLYCEMIC. Back pain. HX STOMACH ULCER YEARS AGO. History of Any Multi-Drug Resistant Organisms: None Reported Past Surgical History: Heart Catheterization, Orthopedic Surgery Additional Past Surgical History / Comment(s): 12/09/15 Laparoscopic Viet F undoplasty. Other surgical hx: CERVICAL FUSION. EGD, LAST 11/17/15. COLONOSCOPY. Past Anesthesia/Blood Transfusion Reactions: No Reported Reaction Past Psychological History: No Psychological Hx Reported Smoking Status: Former smoker Past Alcohol Use History: None Reported Past Drug Use History: None Reported, Opiates - Past Family History Father Family Medical History: Vascular Disorder Additional Family Medical History / Comment(s): Father was a smoker. He had PVD. He at age 70 Mother Family Medical History: Coronary Artery Disease (CAD), Diabetes Mellitus Additional Family Medical History / Comment(s): Mother has an arrhythmia, obesity. <Twila Kamara - Last Filed: 05/17/24 17:46> General Exam Limitations: no limitations <Twila Kamara - Last Filed: 05/17/24 17:46> Limitations: no limitations General appearance: alert, in no apparent distress Head exam: Present: atraumatic, normocephalic Eye exam: Present: normal appearance, EOMI ENT exam: Present: mucous membranes moist Neck exam: Present: normal inspection. Absent: meningismus Respiratory exam: Present: normal lung sounds bilaterally. Absent: respiratory distress, wheezes, rales, rhonchi, stridor Cardiovascular Exam: Present: regular rate, normal rhythm, normal heart sounds. Absent: systolic murmur, diastolic murmur, rubs, gallop, clicks Neurological exam: Present: alert, oriented X3 Psychiatric exam: Present: normal affect, normal mood Skin exam: Present: warm, dry <Hillary Shane - Last Filed: 06/10/24 17:53> - General Exam Comments Initial Comments: Visual Physical Exam Vital signs reviewed General: Well-appearing, nontoxic, no acute distress. Head: Normocephalic, atraumatic Eyes: PERRLA, EOMI ENT: Airway patent Chest: Nonlabored breathing Skin: No visual rash, normal skin tone Neuro: Alert and oriented 3 Musculoskeletal: No gross abnormalities (Twila Kamara) Course Vital Signs 05/17/24 05/17/24 05/17/24 17:40 21:34 22:22 Temperature 98.9 F Pulse Rate 92 71 74 Respiratory 18 16 16 Rate Blood Pressure 144/87 119/76 143/94 O2 Sat by Pulse 98 95 100 Oximetry Medical Decision Making <Twila Kamara - Last Filed: 05/17/24 17:46> - Lab Data Result diagrams: 05/17/24 18:27 05/17/24 18:27 <Hillary Shane - Last Filed: 06/10/24 17:53> - Medical Decision Making I performed the QuickNote portion of this chart. Signed Twila Kamara PA-C. (Twila Kamara) Was pt. sent in by a medical professional or institution ([facility] [place], MACHINE STONECUTTER, urgent care, hospital, or snf...) When possible be specific @ -No Did you speak to anyone other than the patient for history (EMS, parent, family, police, friend...)? What history was obtained from this source @ -No Did you review nursing and triage notes (agree or disagree)? Why? @ -I reviewed and agree with nursing and triage notes Were old charts reviewed (outside hosp., previous admission, EMS record, old EKG, old radiological studies, urgent care reports/EKG's, snf records)? Report findings @ -No old charts were reviewed Differential Diagnosis (chest pain, altered mental status, abdominal pain women, abdominal pain men, vaginal bleeding, weakness, fever, dyspnea, syncope, headache, dizziness, GI bleed, back pain, seizure, CVA, palpatations, mental health, musculoskeletal)? @ -Differential includes COVID, influenza, RSV, other URI, pneumonia, this is not an all-inclusive list EKG interpreted by me (3pts min.). @ -As above X-rays interpreted by me (1pt min.). @ -Chest x-ray shows no acute cardiopulmonary process CT interpreted by me (1pt min.). @ -None done U/S interpreted by me (1pt. min.). @ -None done What testing was considered but not performed or refused? (CT, X-rays, U/S, labs)? Why? @ -None What meds were considered but not given or refused? Why? @ -None Did you discuss the management of the patient with other professionals (professionals i.e. , PA, MACHINE STONECUTTER, lab, RT, psych nurse, social director, customer support specialist, teacher, motorized squad commanding officer, rehabilitation case coordinator)? Give summary @ -No Was smoking cessation discussed for >3mins.? @ -No Was critical care preformed (if so, how long)? @ -No Were there social determinants of health that impacted care today? How? (Homelessness, low income, unemployed, alcoholism, drug addiction, transportation, low edu. Level, literacy, decrease access to med. care, [place] [facility], rehab)? @ -No Was there de-escalation of care discussed even if they declined (Discuss DNR or withdrawal of care, Hospice)? DNR status @ -No What co-morbidities impacted this encounter? (DM, HTN, Smoking, COPD, CAD, Cancer, CVA, ARF, Chemo, Hep., AIDS, mental health diagnosis, sleep apnea, morbid obesity)? @ -None Was patient admitted / discharged? Hospital course, mention meds given and route, prescriptions, significant lab abnormalities, going to OR and other p ertinent info. @ -59-year-old male with generalized weakness and URI-like symptoms. Workup was initiated by triage. Patient was later brought back to room and evaluated by myself. He tested positive for COVID. Remainder of lab work requires no major intervention. Chest x-ray is negative for acute process. He requests antiviral medication, he will be treated with Paxlovid after checking that his medications will not interact. Educated on COVID-19 quarantine measures and supportive management. Discharged home. Follow-up with PCP. Report back to ER with any new or worsening symptoms. Discussed return parameters and answered all questions. Patient conveyed verbal understanding and agreed to the plan. I discussed this case in detail with my attending Dr. Gallo Undiagnosed new problem with uncertain prognosis? @ -No Drug Therapy requiring intensive monitoring for toxicity (Heparin, Nitro, Insulin, Cardizem)? @ -No Were any procedures done? @ -No Diagnosis/symptom? @ -COVID Acute, or Chronic, or Acute on Chronic? @ -Acute Uncomplicated (without systemic symptoms) or Complicated (systemic symptoms)? @ -Uncomplicated Side effects of treatment? @ -No Exacerbation, Progression, or Severe Exacerbation? @ -No Poses a threat to life or bodily function? How? (Chest pain, USA, VT, pneumonia, PE, COPD, DKA, ARF, appy, cholecystitis, CVA, Diverticulitis, Homicidal, [place] me[place], threat to staff... and all critical care pts) @ -Low likelihood at this time (Hillary Shane) - Lab Data Lab Results 05/17/24 05/17/24 05/17/24 Range/Units 18:27 18:27 18:27 WBC 10.0 (3.8-10.6) k/uL RBC 4.67 (4.30-5.90) m/uL Hgb 14.9 (13.0-17.5) gm/dL Hct 43.6 (39.0-53.0) % MCV 93.4 (80.0-100.0) fL MCH 31.8 (25.0-35.0) pg MCHC 34.1 (31.0-37.0) g/dL RDW 12.7 (11.5-15.5) % Plt Count 233 (150-450) k/uL MPV 6.8 Neutrophils % 79 % Lymphocytes % 11 % Monocytes % 7 % Eosinophils % 2 % Basophils % 1 % Neutrophils # 7.9 H (1.3-7.7) k/uL Lymphocytes # 1.1 (1.0-4.8) k/uL Monocytes # 0.7 (0-1.0) k/uL Eosinophils # 0.2 (0-0.7) k/uL Basophils # 0.1 (0-0.2) k/uL PT 11.3 (10.0-12.5) sec INR 1.0 (<1.2) APTT 25.3 (22.0-30.0) sec Sodium 136 L (137-145) mmol/L Potassium 4.0 (3.5-5.1) mmol/L Chloride 106 (98-107) mmol/L Carbon Dioxide 21 L (22-30) mmol/L Anion Gap 9 mmol/L BUN 12 (9-20) mg/dL Creatinine 0.76 (0.66-1.25) mg/dL Est GFR (CKD-EPI)AfAm >90 (>60 ml/min/1.73 sqM) Est GFR (CKD-EPI)NonAf >90 (>60 ml/min/1.73 sqM) Glucose 105 H (74-99) mg/dL Plasma Lactic Acid Jim (0.7-2.0) mmol/L Calcium 9.2 (8.4-10.2) mg/dL Phosphorus 2.4 L (2.5-4.5) mg/dL Magnesium 1.8 (1.6-2.3) mg/dL Total Bilirubin 0.9 (0.2-1.3) mg/dL AST 31 (17-59) U/L ALT 17 (4-49) U/L Alkaline Phosphatase 61 (38-126) U/L Troponin I (0.000-0.034) ng/mL Total Protein 7.4 (6.3-8.2) g/dL Albumin 4.6 (3.5-5.0) g/dL Influenza Type A (PCR) (Not Detectd) Influenza Type B (PCR) (Not Detectd) RSV (PCR) (Not Detectd) SARS-CoV-2 (PCR) (Not Detectd) 05/17/24 05/17/24 05/17/24 Range/Units 18:27 18:27 18:27 WBC (3.8-10.6) k/uL RBC (4.30-5.90) m/uL Hgb (13.0-17.5) gm/dL Hct (39.0-53.0) % MCV (80.0-100.0) fL MCH (25.0-35.0) pg MCHC (31.0-37.0) g/dL RDW (11.5-15.5) % Plt Count (150-450) k/uL MPV Neutrophils % % Lymphocytes % % Monocytes % % Eosinophils % % Basophils % % Neutrophils # (1.3-7.7) k/uL Lymphocytes # (1.0-4.8) k/uL Monocytes # (0-1.0) k/uL Eosinophils # (0-0.7) k/uL Basophils # (0-0.2) k/uL PT (10.0-12.5) sec INR (<1.2) APTT (22.0-30.0) sec Sodium (137-145) mmol/L Potassium (3.5-5.1) mmol/L Chloride (98-107) mmol/L Carbon Dioxide (22-30) mmol/L Anion Gap mmol/L BUN (9-20) mg/dL Creatinine (0.66-1.25) mg/dL Est GFR (CKD-EPI)AfAm (>60 ml/min/1.73 sqM) Est GFR (CKD-EPI)NonAf (>60 ml/min/1.73 sqM) Glucose (74-99) mg/dL Plasma Lactic Acid Jim 0.9 (0.7-2.0) mmol/L Calcium (8.4-10.2) mg/dL Phosphorus (2.5-4.5) mg/dL Magnesium (1.6-2.3) mg/dL Total Bilirubin (0.2-1.3) mg/dL AST (17-59) U/L ALT (4-49) U/L Alkaline Phosphatase (38-126) U/L Troponin I <0.012 (0.000-0.034) ng/mL Total Protein (6.3-8.2) g/dL Albumin (3.5-5.0) g/dL Influenza Type A (PCR) Not Detected (Not Detectd) Influenza Type B (PCR) Not Detected (Not Detectd) RSV (PCR) Not Detected (Not Detectd) SARS-CoV-2 (PCR) Detected A (Not Detectd) Disposition <Twila Kamara - Last Filed: 05/17/24 17:46> Is patient prescribed a controlled substance at d/c from ED?: No Time of Disposition: 21:14 <Hillary Shane - Last Filed: 06/10/24 17:53> Clinical Impression: COVID-19 Disposition: HOME SELF-CARE Condition: Good Instructions (If sedation given, give patient instructions): COVID-19 (Coronavirus Disease 2019) (ED) Additional Instructions: Follow-up with PCP. Report back to ER with any new or worsening symptoms. Wash your hands and stay well-hydrated. Alternate Motrin and Tylenol as needed for fever and pain control. Prescriptions: Nirmatrelvir/Ritonavir [Paxlovid 300-100 mg Dose Pack] 1 each PO BID 5 Days #30 each Referrals: Nonstaff,Physician [Primary Care Provider] - 1-2 days
[2024-05-17 18:52] LABS: Basophils # (A) 0.1 k/uL (0-0.2); Basophils % (A) 1 %; Eosinophils # (A) 0.2 k/uL (0-0.7); Eosinophils % (A) 2 %; HCT 43.6 % (39.0-53.0); HGB 14.9 gm/dL (13.0-17.5); Lymphocytes # (A) 1.1 k/uL (1.0-4.8); Lymphocytes % (A) 11 %; MCH 31.8 pg (25.0-35.0); MCHC 34.1 g/dL (31.0-37.0); MCV 93.4 fL (80.0-100.0); Mean Platelet Volume 6.8; Monocytes # (A) 0.7 k/uL (0-1.0); Monocytes % (A) 7 %; Neutrophils # (A) 7.9 k/uL (1.3-7.7); Neutrophils % (A) 79 %; Platelet Count 233 k/uL (150-450); RBC 4.67 m/uL (4.30-5.90); RDW 12.7 % (11.5-15.5)
[2024-05-17 19:01] LABS: Partial Thromboplastin Time 25.3 sec (22.0-30.0); Prothrombin Time 11.3 sec (10.0-12.5)
[2024-05-17 19:02] LABS: ALT 17 U/L (4-49); African American GFR (CKD) >90 (>60 ml/min/1.73 sqM); Albumin 4.6 g/dL (3.5-5.0); Anion Gap 9 mmol/L; Blood Urea Nitrogen 12 mg/dL (9-20); Calcium 9.2 mg/dL (8.4-10.2); Carbon Dioxide 21 mmol/L (22-30); Chloride 106 mmol/L (98-107); Glucose 105 mg/dL (74-99); Non-African American GFR(CKD) >90 (>60 ml/min/1.73 sqM); Sodium 136 mmol/L (137-145); Total Bilirubin 0.9 mg/dL (0.2-1.3); Total Protein 7.4 g/dL (6.3-8.2)
[2024-05-17 19:26] LABS: AST 31 U/L (17-59); Alkaline Phosphatase 61 U/L (38-126); Magnesium 1.8 mg/dL (1.6-2.3); Phosphorus 2.4 mg/dL (2.5-4.5)
--- NOTE | 2024-05-17 20:06 | XR ---
EXAMINATION TYPE: XR chest 2V DATE OF EXAM: 05/17/2024 COMPARISON: None HISTORY: 59-year-old male with weakness TECHNIQUE: PA and lateral views FINDINGS: ACDF and posterior cervicothoracic fusion hardware. Spinal stimulator array centered along the lower thoracic spinal canal. Heart normal size. Aorta and pulmonary vasculature within normal limits. No co nsolidation or pleural effusion. Suture anchor right humeral head from prior cuff appear. IMPRESSION: No acute cardiopulmonary process.
[2024-05-17] MEDS: SODIUM CHLORIDE 0.9% 500 ML 500 ML IV ONE (21:29)
[2024-05-17 21:38] VITALS: RESP 16
[2024-05-17 22:23] VITALS: BP 143/94; PULSE 74
== END 2024-05-17 22:23 | disposition home or self-care (01) ==
LOC: EC 17:31
DX: U07.1 COVID-19 (principal); Z87.891 Personal history of nicotine dependence
CPT/HCPCS: 36415; 71046; 80053; 83605; 83735; 84100; 84484; 85025; 85610; 85730; 87636; 93005; 96360; 99283; 99285